=== PATIENT | male | born 1955 | race Caucasian/White ===

== ENCOUNTER 2022-02-23 09:59 | Emergency (ER) | payer MEDICARE, OTHER, SELFPAY ==
[2022-02-23 10:05] VITALS: BP 169/98; PULSE 68; RESP 18; TEMP 36.8; O2SAT 98; BMI 25.4
[2022-02-23] MEDS: OXYMETAZOLINE NASAL SPRAY 15 ML 2 SPRAYS NASAL (10:16)
[2022-02-23 12:00] VITALS: BP 168/78; PULSE 78; RESP 20; O2SAT 98
--- NOTE | 2022-02-23 12:34 | ED.EPISTAXIS ---
HPI - Epistaxis General Chief complaint: Nasal Problem Stated complaint: Nose bleed over an hour Time Seen by Provider: 02/23/22 11:59 Source: patient Mode of arrival: Ambulatory History of Present Illness HPI Narrative: 67-year-old male presents to the emergency department with epistaxis from his left nares since this morning. Patient was camping for 1 week in the [employer] and returned yesterday. This morning, he felt like blowing his nose and afterwards felt a constant dribbling of blood from his left naris. Patient applied direct pressure and ice to his nose but would not cease. Patient presented to the emergency room and immediately had Afrin sprayed in his nostril and a clamp applied. Review of Systems Review of Systems Narrative: Narrative: GENERAL: Denies chills, fatigue, fever, sweats. See HPI HEENT: Denies sinus pain, ear pain, sore throat, difficulty swallowing, dizziness. Endorses bleeding from the left naris. RESPIRATORY: Denies dyspnea, cough, wheezing, sputum. CARDIOVASCULAR: Denies chest pain, palpitations, edema. GASTROINTESTINAL: Denies nausea, vomiting, abdominal pain, diarrhea, constipation. : Denies dysuria, frequency, incontinence, hematuria, urinary retention, flank pain. MSK: Denies weakness, joint pain, or bony pain. SKIN: Denies rash, skin lesions, or pruritis. NEUROLOGIC: Denies weakness, dizziness, headache, numbness, confusion. PSYCHIATRIC: No concerning psychosocial issues. Exam Narrative Exam Narrative: Exam Narrative: GENERAL: This is a well-nourished, well-developed patient, in no acute distress HEAD: Atraumatic. Normocephalic. EYES: Pupils equal round and reactive. Extraocular motions intact. No scleral icterus, injection or drainage. ENT: Nose with bleeding from left nare, no purulent drainage. Throat without erythema, tonsillar hypertrophy or exudate. Airway patent. Nose clamp in place. Once clamp was removed, constant dribbling noticed from left naris. Nose clamp replaced. Re-evaluation 15 minutes later showed no active bleeding. Reexamined 30 minutes later and all bleeding has stopped. NECK: Trachea midline. No JVD or lymphadenopathy. Nontender. CARDIOVASCULAR: Regular rate and rhythm without murmurs, peripheral pulses intact, cap refill <2 sec. RESPIRATORY: Breath sounds equal and clear bilaterally. No wheezes, rales, or rhonchi. No cough. No increased respiratory effort. No accessory muscle use. GASTROINTESTINAL: Abdomen soft, non-tender, nondistended without guarding or rebound. No suprapubic pain. MSK: Moves all extremities. Normal range of motion, no clubbing or edema. Neurovascularly intact. NEURO: A&O x 3. SKIN: Warm, dry, no rashes or lesions noted. Initial Vital Signs Initial Vital Signs: Vital Signs Temperature 98.2 F 02/23/22 10:05 Pulse Rate 68 02/23/22 10:05 Respiratory Rate 18 02/23/22 10:05 Blood Pressure 169/98 H 02/23/22 10:05 Pulse Oximetry 98 02/23/22 10:05 Oxygen Delivery Method 02/23/22 10:05 Reviewed Procedures Epistaxis Control Nostril: left Nose Prepped With: oxymetazoline Direct Inspection: yes Patient Tolerated Procedure: well Course Orders Ordered: Discontinued Medications Lidocaine/Epinephrine (Lidocaine 1% W/Epi) 1 ml SUBCUT NOW ONE Stop: 02/23/22 12:19 Last Admin: 02/23/22 13:23 Dose: Not Given Documented By: ART Oxymetazoline HCl (Oxymetazoline Nasal [place] 15 Ml) 2 sprays NASAL NOW ONE Stop: 02/23/22 10:13 Last Admin: 02/23/22 10:16 Dose: 2 sprays Documented By: MONICA Silver Nitrate/Potassium Nitrate (Silver Nitrate Stick) 2 each TOP NOW ONE Stop: 02/23/22 12:19 Last Admin: 02/23/22 13:46 Dose: Not Given Documented By: ART Vital Signs Vital signs: Vital Signs - 8 hr 02/23/22 10:05 02/23/22 13:00 02/23/22 12:00 Temperature 98.2 F Pulse Rate 68 70 78 Respiratory Rate 18 18 20 Blood Pressure 169/98 H 150/70 H 168/78 H Pulse Oximetry 98 98 98 Oxygen Delivery Method Room Air MDM - Epistaxis Differential Diagnosis Differential diagnosis: Likely anterior epistaxis MDM Narrative Medical decision making narrative: 67-year-old male presents emergency department with epistaxis from the left elder since this morning. Attempts at home included direct pressure and ice with no improvement. Afrin and nose clamp used to eventually stop nose bleeding. Discussed return precautions and plan of care with patient and spouse, who were agreeable with course of action. Discharge Plan Departure Patient Disposition: Home Clinical Impression: Epistaxis Instructions: DI for Nosebleed Activity Restrictions/Additional Instructions: *You have been diagnosed with a nose bleed. We were able to stop your bleed with Afrin sprayed into the nostril along with a nose clamp. Just as you did at home, you may also add ice to the direct pressure to stop any further nosebleeds. As discussed, please use a petroleum jelly or normal saline in your nostrils for the next few days to keep it moist to prevent it from rebleeding. You may contact ENT for any future bleeds during working hours. Otherwise, see your family doctor or return to the emergency department for treatment. *What to do: *Please continue to take your regular medications as directed. [ ] New medication prescriptions sent to your pharmacy: [ ] [ ] New medication written as a paper prescription [x ] No new medications given *Please follow up with your primary care provider in 2-3 days, call for an appointment. Let them know you were seen in the Emergency Department and that we ask that you be seen in follow up. We will electronically transmit a record of today's note if your PCP is in our system *If you do not have a primary care provider please contact the [facility] Resource line at [phone]. They will ask some questions about your medical history and help get you set up with a doctor in the community. ? Return to ER if you should have any new, worsening or concerning symptoms, such as worsening pain, severe headache, confusion, chest pain, difficulty breathing, fever greater than 101 F, shaking chills, persistent vomiting to the point that you cannot drink fluids, or other new or worsening symptoms. Referrals: Brennon Hines MD [Physician] - Jocelyne Rogers MD [Primary Care Provider] - Visit Report Forms: Patient Portal/API
[2022-02-23 13:00] VITALS: BP 150/70; PULSE 70; RESP 18; O2SAT 98
== END 2022-02-23 13:47 | disposition home or self-care (01) ==
PROVIDERS: Emergency Provider Registered Nurse; PCP Student in an Organized Health Care Education/Training Program
DX: R04.0 Epistaxis (principal)
CPT/HCPCS: 99282; A9270

== ENCOUNTER → 2022-11-24 08:18 | Outpatient (CLI) | payer MEDICARE, OTHER, SELFPAY ==
[2022-11-24 09:08] LABS: Influenza A - CEPHEID Flu A NEGATIVE (NEGATIVE); Influenza B - CEPHEID Flu B NEGATIVE (NEGATIVE); Respiratory Syncytial Virus Negative (Negative)
[2022-11-24 09:09] LABS: COVID-19 CEPHEID 4-PLEX PCR Negative (Negative)
== END ==
PROVIDERS: PCP Student in an Organized Health Care Education/Training Program; Visit Provider Physician Assistant
DX: R05.9 Cough, unspecified (principal); R09.81 Nasal congestion; Z20.822 Contact with and (suspected) exposure to COVID-19
CPT/HCPCS: 0241U